=== PATIENT | female | born 1940 ===

== ENCOUNTER 2017-03-13 12:55 | Emergency (ER) | payer SELFPAY ==
[2017-03-13 13:10] VITALS: TEMP 98.6
--- NOTE | 2017-03-13 13:21 | C.PDOC ---
History Of Present Illness 77F c.o constant left shoulder pain that started about 1 hour ago while she was brushing her hair. hx shoulder dislocation few months ago same side. Time Seen by Provider: 03/13/17 13:18 Chief Complaint (Nursing): Upper Extremity Problem/Injury Past Medical History Vital Signs: Last Vital Signs Temp 98.6 F 03/13/17 13:04 Pulse 50 L 03/13/17 14:53 Resp 18 03/13/17 14:53 BP 184/73 H 03/13/17 14:53 Pulse Ox 98 03/13/17 14:53 - Medical History PMH: HTN Family History: States: Other Other Family History: nc - Social History Hx Alcohol Use: No Hx Substance Use: No - Immunization History Hx Tetanus Toxoid Vaccination: No Hx Influenza Vaccination: No Hx Pneumococcal Vaccination: No Review Of Systems Constitutional: Negative for: Fever, Chills Cardiovascular: Negative for: Chest Pain Respiratory: Negative for: Cough, Shortness of Breath Gastrointestinal: Negative for: Nausea, Vomiting Musculoskeletal: Positive for: Shoulder Pain Neurological: Negative for: Weakness, Numbness Physical Exam - Physical Exam Appears: Well, Non-toxic Skin: Warm, Dry Head: Atraumatic Eye(s): bilateral: PERRL Tongue: No Swelling Lips: No Swelling Throat: No Erythema, No Exudate Neck: Normal ROM Cardiovascular: Rhythm Regular Respiratory: No Decreased Breath Sounds Extremity: Other (pt has left arm adducted and has pain w rom but is able to rouch her right shoulder. nl sensation in ax nerve dist. strenght normal. radial pulse 2+.) Neurological/Psych: Oriented x3, Normal Motor, Normal Sensation ED Course And Treatment O2 Sat by Pulse Oximetry: 97 Orthopedic Procedure: Joint reduction Consent obtained: Verbal Performed by: Attending Physician Diagnosis: Dislocation (left shoulder) Anesthetic Technique: Intravenous pain meds Anesthetic: Other (bupivicaine intra-articular injection (sterile technique used )) Capillary refill: Normal Distal Sensation: Normal Distal Motor Function: Normal Capillary Refill: Normal Compartment: Soft Distal Sensation: Normal Distal Motor Function: Normal Post-reduction Radiograph: Good Alignment Patient tolerated procedure: Well Medical Decision Making Medical Decision Making: shoulder left xr- humeral head dislocation post-reduction shoulder xr- successful reduction prior noted dislocation shoulder immobilizer placed in ED after reduction disc w pt and family importance of follow up with orthopedic surgeon Disposition - Disposition Referrals: Filiberto Hanley III, MD [Staff Provider] - Disposition: HOME/ ROUTINE Disposition Time: 14:49 Condition: IMPROVED Additional Instructions: Please follow up with an orthopedic surgeon. You should keep the shoulder immobilizer on until you see the surgeon. Return to the ER for any worsening symptoms, uncontrolled pain, numbness, weakness or for any other concerns. Prescriptions: Naproxen [Naprosyn] 500 mg PO Q12H PRN #10 tablet PRN Reason: Pain, Moderate (4-7) Instructions: Shoulder Dislocation (ED) Forms: Gen Discharge Inst Slovak, [facility] (Slovak) Print Language: BURKIN[place] - Clinical Impression Clinical Impression: Anterior shoulder dislocation
[2017-03-13] MEDS ORDERED: Bupivacaine 0.5% Inj(30mL) IJ ONE (13:46)
[2017-03-13] MEDS ORDERED: Morphine 4 MG/ML VIAL ONE (13:49)
[2017-03-13] MEDS ORDERED: Bupivacaine HCl 0.5% PF (30 ml) Inj ONE (13:56)
--- NOTE | 2017-03-13 14:53 | RAD ---
PROCEDURE: Radiographs of the Left Shoulder HISTORY: pain ?dislocation COMPARISON: No prior. FINDINGS: BONES: No evidence of fracture. Anterior dislocation left humeral head at the glenohumeral articulation. JOINTS: Normal. Glenohumeral and acromioclavicular joints preserved. No osteoarthritis. SOFT TISSUES: Normal. OTHER FINDINGS: None. IMPRESSION: Anterior dislocation left glenohumeral joint
[2017-03-13 14:54] VITALS: BP 184/73; PULSE 50; RESP 18
--- NOTE | 2017-03-13 14:55 | RAD ---
PROCEDURE: Radiographs of the Left Shoulder HISTORY: post reduction COMPARISON: 03/13/2017 at 1:28 p.m. FINDINGS: BONES: No evidence of fracture. JOINTS: Status post close reduction glenohumeral dislocation. The humeral head is subluxed superiorly, likely indicating chronic rotator cuff insufficiency. However, this is a limited examination, radiographically. SOFT TISSUES: Normal. OTHER FINDINGS: None. IMPRESSION: Close reduction left glenohumeral articulation. Superior subluxation humeral head may indicate rotator cuff insufficiency.
[2017-03-18 15:05] VITALS: O2SAT 97
== END 2017-03-13 15:04 | disposition home or self-care (01) ==
LOC: C.ER 12:55
DX: S43.015A Anterior dislocation of left humerus, initial encounter (principal); X58.XXXA Exposure to other specified factors, initial encounter
CPT/HCPCS: 23650; 73030; 96374; 96375; 99285; J1885; J2270